=== PATIENT | female | born 1965 | race Hispanic/Latino ===

== ENCOUNTER 2017-08-31 13:27 | Emergency (ER) | payer OTHER, SELFPAY ==
--- NOTE | 2017-08-31 14:43 | ER ---
Nurse's Notes [facility] Name: Estefanía Pimentel Age: 52 yrs Sex: Female : 1965 Arrival Date: 08/31/2017 Time: 13:33 Bed 8 Private MD: Diagnosis: Essential (primary) hypertension Presentation: 08/31 13:50 Presenting complaint: Patient states: i was at work today, i felt little bit weird, hj felt my vision is blurry, BP- 160/75; HR- 88; my back is hurting now; denies fever and chills;. Transition of care: patient was not received from another setting of care. Onset of symptoms was August 31, 2017. Care prior to arrival: None. 13:50 Method Of Arrival: Ambulatory 13:50 Acuity: DANIEL 3 hj Triage Assessment: 13:53 General: Appears in no apparent distress. uncomfortable, Behavior is calm, cooperative, hj appropriate for age. Pain: Complains of pain in back. Musculoskeletal: Circulation, motion, and sensation intact. 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 Assessment: 14:00 General: Appears in no apparent distress. comfortable, well groomed, Behavior is calm, ae1 cooperative. Pain: Denies pain. Neuro: Level of Consciousness is awake, alert, obeys commands, Oriented to person, place, time, situation. Neuro: Reports blurred vision dizziness, Patient states " I told them I was fine but they made me come here". Cardiovascular: Heart tones S1 S2 present Patient's skin is warm and dry. Respiratory: Airway is patent Respiratory effort is even, unlabored, Respiratory pattern is regular, symmetrical, Breath sounds are clear bilaterally. GI: No signs and/or symptoms were reported involving the gastrointestinal system. : No signs and/or symptoms were reported regarding the genitourinary system. EENT: No signs and/or symptoms were reported regarding the EENT system. Derm: Skin is normal. Musculoskeletal: No signs and/or symptoms reported regarding the musculoskeletal system. Vital Signs: 13:54 BP 154 / 95; Pulse 78; Resp 18; Temp 97.8(TE); Pulse Ox 100% on R/A; Weight 71.67 kg; hj Height 5 ft. 6 in. (167.64 cm); 13:54 Body Mass Index 25.50 (71.67 kg, 167.64 cm) ED Course: 13:33 Patient arrived in ED. mr 13:52 Triage completed. hj 13:55 Arm band placed on right wrist. hj 14:00 Bed in low position. Call light in reach. Side rails up X 1. Pulse ox on. NIBP on. ae1 14:01 Ananda Solorio, RN is Primary Nurse. ae1 14:30 Marianela Lopez FNP is PHCP. kachito 14:30 Collin Norton MD is Attending Physician. kav Administered Medications: No medications were administered Outcome: 15:20 Patient left the ED. ae1 Signatures: Marianela Lopez FNP FNP kav Rivera, Maria Royal Lara RN RN Ananda Solorio, RN RN ae1 Corrections: (The following items were deleted from the chart) 13:54 13:50 Presenting complaint: Patient states: i was at work today, i felt little bit mina smith, BP- 160/75; HR- 88; my back is hurting now; denies fever and chills; hj
--- NOTE | 2017-08-31 14:44 | EDPHYS ---
Physician Documentation [facility] Name: Estefanía Pimentel Age: 52 yrs Sex: Female : 1965 Arrival Date: 08/31/2017 Time: 13:33 Bed 8 Private MD: ED Physician Collin Norton HPI: 08/31 14:30 This 52 yrs old Female presents to ER via Ambulatory with complaints of kav Blurred Vision, Dizziness, Back Pain. 14:35 Onset: The symptoms/episode began/occurred acutely. Duration: This was a single kav incident. Context: occurred at work, Possible contributing factors include: "...did not take her blood pressure medication today because she has not picked it up from the pharmacy". The symptoms are alleviated by nothing. The symptoms are aggravated by nothing. Associated signs and symptoms: Pertinent positives: back pain, blurred vision, Pertinent negatives: abdominal pain, agitation, ataxia, combativeness, confusion, diaphoresis, diarrhea, dizziness, headache, lightheadedness, nausea, numbness, palpitations, seizure, shortness of breath, tingling, vertigo, vomiting, weakness. Severity of symptoms: At their worst the symptoms were mild just prior to arrival, in the emergency department the symptoms have improved moderately. Patient's baseline: Neuro: alert and fully oriented, Motor: no deficits, Ambulation: walks without assistance, Speech: normal. The patient has not experienced similar symptoms in the past. The patient has been recently seen by a physician: the patient's primary care provider, change blood pressure medication . patient presents with c/o dizziness, blurred vision, back pain. she reports that she was "...switched to a new blood pressure medication on 08/30/17 and has not picked up the medication yet so, today she went without her blood pressure medication". she reports that "...she could tell that her blood pressure was elevated so, she came to the ED to get it checked out". 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 ROS: 14:40 Constitutional: Negative for fever, chills, and weight loss, Eyes: Negative for injury, kav pain, redness, and discharge, ENT: Negative for injury, pain, and discharge, Neck: Negative for injury, pain, and swelling, Cardiovascular: Negative for chest pain, palpitations, and edema, Respiratory: Negative for shortness of breath, cough, wheezing, and pleuritic chest pain, Abdomen/GI: Negative for abdominal pain, nausea, vomiting, diarrhea, and constipation, Back: Negative for injury and pain, : Negative for injury, bleeding, discharge, and swelling, MS/Extremity: Negative for injury and deformity, Skin: Negative for injury, rash, and discoloration, Psych: Negative for depression, anxiety, suicide ideation, homicidal ideation, and hallucinations, Allergy/Immunology: Negative for hives, rash, and allergies, Endocrine: Negative for neck swelling, polydipsia, polyuria, polyphagia, and marked weight changes, Hematologic/Lymphatic: Negative for swollen nodes, abnormal bleeding, and unusual bruising. 14:40 Neuro: Positive for dizziness, visual changes, Negative for altered mental status, gait disturbance, headache, loss of consciousness, seizure activity, speech changes, syncope, near syncope, weakness. Exam: 14:40 Constitutional: This is a well developed, well nourished patient who is awake, alert, kav and in no acute distress. Head/Face: Normocephalic, atraumatic. Eyes: Pupils equal round and reactive to light, extra-ocular motions intact. Lids and lashes normal. Conjunctiva and sclera are non-icteric and not injected. Cornea within normal limits. Periorbital areas with no swelling, redness, or edema. ENT: Nares patent. No nasal discharge, no septal abnormalities noted. Tympanic membranes are normal and external auditory canals are clear. Oropharynx with no redness, swelling, or masses, exudates, or evidence of obstruction, uvula midline. Mucous membranes moist. Neck: Trachea midline, no thyromegaly or masses palpated, and no cervical lymphadenopathy. Supple, full range of motion without nuchal rigidity, or vertebral point tenderness. No Meningismus. Chest/axilla: Normal chest wall appearance and motion. Nontender with no deformity. No lesions are appreciated. Respiratory: Lungs have equal breath sounds bilaterally, clear to auscultation and percussion. No rales, rhonchi or wheezes noted. No increased work of breathing, no retractions or nasal flaring. Abdomen/GI: Soft, non-tender, with normal bowel sounds. No distension or tympany. No guarding or rebound. No evidence of tenderness throughout. Back: No spinal tenderness. No costovertebral tenderness. Full range of motion. Skin: Warm, dry with normal turgor. Normal color with no rashes, no lesions, and no evidence of cellulitis. MS/ Extremity: Pulses equal, no cyanosis. Neurovascular intact. Full, normal range of motion. Neuro: Awake and alert, GCS 15, oriented to person, place, time, and situation. Cranial nerves II-XII grossly intact. Motor strength 5/5 in all extremities. Sensory grossly intact. Cerebellar exam normal. Normal gait. Psych: Awake, alert, with orientation to person, place and time. Behavior, mood, and affect are within normal limits. 14:40 Cardiovascular: hypertension 183/103 in ED setting. 14:40 Neuro: Exam negative for acute changes. kav Vital Signs: 13:54 BP 154 / 95; Pulse 78; Resp 18; Temp 97.8(TE); Pulse Ox 100% on R/A; Weight 71.67 kg; hj Height 5 ft. 6 in. (167.64 cm); 13:54 Body Mass Index 25.50 (71.67 kg, 167.64 cm) hj MDM: 14:30 Patient medically screened. kav 14:40 Data reviewed: vital signs, nurses notes, EKG. kav Administered Medications: No medications were administered Disposition: 09/01 14:46 Co-signature as Attending Physician, Collin Norton MD I agree with the assessment and [facility] plan of care. Disposition: 08/31/17 14:43 Patient has left against medical advice. Impression: Essential (primary) hypertension. - Patients states they are going to Home. - Condition is Stable. - Discharge Instructions: Hypertension, [id number], How to Take Your Blood Pressure, [id number], DASH Eating Plan, Managing Your High Blood Pressure. Follow up: Private Physician; When: 1 - 2 days; Reason: Recheck today's complaints, Continuance of care, Re-evaluation by your physician. - Problem is new. - Symptoms have improved. Signatures: Collin Norton MD MD cha Vern, Katherine, LOCOMOTIVE SUPERVISOR LOCOMOTIVE SUPERVISOR Royal Montes, RN RN hj Ananda Solorio RN RN ae1
== END 2017-08-31 15:20 | disposition left against medical advice (07) ==
LOC: ER 13:27
DX: I10 Essential (primary) hypertension
CPT/HCPCS: 99282

== ENCOUNTER 2017-11-04 10:33 | Emergency (ER) | payer OTHER ==
--- NOTE | 2017-11-04 11:31 | ER ---
Nurse's Notes [facility] Name: Estefanía Pimentel Age: 52 yrs Sex: Female : 1965 Arrival Date: 11/04/2017 Time: 10:35 Bed 11 Private MD: out of town, doctor Diagnosis: Other sprain of right middle finger Presentation: 11/04 11:12 Presenting complaint: Patient states: Patient states she was removing her glove from ae1 her left hand and felt a cramp in her palm and left middle digit the previous day. She reports pain and swelling to her left middle digit. Transition of care: patient was not received from another setting of care. Onset of symptoms was November 03, 2017 at 16:00. 11:12 Method Of Arrival: Ambulatory ae1 11:12 Acuity: DANIEL 5 ae1 11:15 Risk Assessment: Do you want to hurt yourself or someone else? Patient reports no iw desire to harm self or others. Initial Sepsis Screen: Does the patient meet any 2 criteria? No. Patient's initial sepsis screen is negative. Does the patient have a suspected source of infection? No. Patient's initial sepsis screen is negative. Care prior to arrival: None. Triage Assessment: 11:17 General: Appears in no apparent distress. comfortable, Behavior is calm, cooperative. ae1 Pain: Complains of pain in palmar aspect of distal phalanx of left middle finger, palmar aspect of middle phalanx of left middle finger, palmar aspect of proximal phalanx of left middle finger and palm of left hand. Neuro: Level of Consciousness is awake, alert, obeys commands, Oriented to person, place, time, situation. Respiratory: Airway is patent. Musculoskeletal: Swelling mild swelling to left middle digit. 11:30 Injury Description:. 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 - Social history:: Smoking status: Patient/guardian denies using tobacco. - Ebola Screening: : Patient negative for fever greater than or equal to 101.5 degrees Fahrenheit, and additional compatible Ebola Virus Disease symptoms Patient denies exposure to infectious person Patient denies travel to an Ebola-affected area in the 21 days before illness onset No symptoms or risks identified at this time. Screenin:30 Abuse screen: Denies threats or abuse. Denies injuries from another. Nutritional iw screening: No deficits noted. Tuberculosis screening: No symptoms or risk factors identified. Fall Risk None identified. Assessment: 11:30 General: Appears in no apparent distress. Behavior is calm, cooperative. Pain: iw Complains of pain in palm of left hand and palmar aspect of proximal phalanx of left middle finger. Neuro: Level of Consciousness is awake, alert, obeys commands, Oriented to person, place, time, Moves all extremities. Full function. Cardiovascular: Patient's skin is warm and dry. Respiratory: Respiratory effort is even, unlabored, Respiratory pattern is regular. Derm: Skin is pink, warm \T\ dry. normal. Musculoskeletal: Range of motion: intact in all extremities. Vital Signs: 11:15 BP 147 / 96; Pulse 67; Resp 18; Temp 98(O); Pulse Ox 100% on R/A; Weight 71.21 kg (R); ae1 ED Course: 10:35 Patient arrived in ED. mr 10:36 out of town, doctor is Private Physician. mr 10:46 Sun Marsh FNP-C is [facility]. snw 10:46 Jay Jacobsen MD is Attending Physician. snw 11:15 Triage completed. ae1 11:17 Arm band placed on right wrist. ae1 11:20 Siomara Naylor, EVAN is Primary Nurse. iw 11:30 Patient has correct armband on for positive identification. iw 11:40 No provider procedures requiring assistance completed. Patient did not have IV access iw during this emergency room visit. Administered Medications: No medications were administered Outcome: 11:31 Discharge ordered by MD. snw 11:42 Discharged to home ambulatory. iw 11:42 Condition: good 11:42 Discharge instructions given to patient, Instructed on discharge instructions, follow up and referral plans. Demonstrated understanding of instructions, follow-up care. 11:43 Patient left the ED. iw Signatures: Sun Marsh FNP-C SALES REPRESENTATIVES-Estefanía Sam mr Siomara Naylor, EVAN RN iw Osmin, Ananda, RN RN ae1
--- NOTE | 2017-11-04 11:31 | EDPHYS ---
Physician Documentation [facility] Name: Estefanía Pimentel Age: 52 yrs Sex: Female : 1965 Arrival Date: 11/04/2017 Time: 10:35 Bed 11 Private MD: out of town, doctor ED Physician Jay Jacobsen HPI: 11/04 11:36 This 52 yrs old Female presents to ER via Ambulatory with complaints of Hand snw Injury. 11:36 The patient or guardian reports pain. The complaints affect the right hand diffusely. snw Context: The problem was sustained at work, resulted from taking glove off. Onset: The symptoms/episode began/occurred yesterday. Associated signs and symptoms: The patient has no apparent associated signs or symptoms. Severity of symptoms: At their worst the symptoms were mild. The patient has not experienced similar symptoms in the past. It is unknown whether or not the patient has recently seen a physician. 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 - Social history:: Smoking status: Patient/guardian denies using tobacco. - Ebola Screening: : Patient negative for fever greater than or equal to 101.5 degrees Fahrenheit, and additional compatible Ebola Virus Disease symptoms Patient denies exposure to infectious person Patient denies travel to an Ebola-affected area in the 21 days before illness onset No symptoms or risks identified at this time. ROS: 11:35 Constitutional: Negative for fever, chills, and weight loss, Eyes: Negative for injury, snw pain, redness, and discharge, ENT: Negative for injury, pain, and discharge, Neck: Negative for injury, pain, and swelling, Cardiovascular: Negative for chest pain, palpitations, and edema, Respiratory: Negative for shortness of breath, cough, wheezing, and pleuritic chest pain, Abdomen/GI: Negative for abdominal pain, nausea, vomiting, diarrhea, and constipation, Back: Negative for injury and pain, : Negative for injury, bleeding, discharge, and swelling, Skin: Negative for injury, rash, and discoloration, Neuro: Negative for headache, weakness, numbness, tingling, and seizure. 11:35 MS/extremity: Positive for injury or acute deformity, tenderness, of the palmar aspect of proximal phalanx of right middle finger and palm of right hand, Negative for decreased range of motion, laceration, paresthesias. Exam: 11:32 Constitutional: This is a well developed, well nourished patient who is awake, alert, snw and in no acute distress. Head/Face: Normocephalic, atraumatic. Eyes: Pupils equal round and reactive to light, extra-ocular motions intact. Lids and lashes normal. Conjunctiva and sclera are non-icteric and not injected. Cornea within normal limits. Periorbital areas with no swelling, redness, or edema. ENT: Nares patent. No nasal discharge, no septal abnormalities noted. Tympanic membranes are normal and external auditory canals are clear. Oropharynx with no redness, swelling, or masses, exudates, or evidence of obstruction, uvula midline. Mucous membranes moist. Neck: Trachea midline, no thyromegaly or masses palpated, and no cervical lymphadenopathy. Supple, full range of motion without nuchal rigidity, or vertebral point tenderness. No Meningismus. Chest/axilla: Normal chest wall appearance and motion. Nontender with no deformity. No lesions are appreciated. Cardiovascular: Regular rate and rhythm with a normal S1 and S2. No gallops, murmurs, or rubs. Normal PMI, no JVD. No pulse deficits. Respiratory: Lungs have equal breath sounds bilaterally, clear to auscultation and percussion. No rales, rhonchi or wheezes noted. No increased work of breathing, no retractions or nasal flaring. Abdomen/GI: Soft, non-tender, with normal bowel sounds. No distension or tympany. No guarding or rebound. No evidence of tenderness throughout. Back: No spinal tenderness. No costovertebral tenderness. Full range of motion. Skin: Warm, dry with normal turgor. Normal color with no rashes, no lesions, and no evidence of cellulitis. Neuro: Awake and alert, GCS 15, oriented to person, place, time, and situation. Cranial nerves II-XII grossly intact. Motor strength 5/5 in all extremities. Sensory grossly intact. Cerebellar exam normal. Normal gait. Psych: Awake, alert, with orientation to person, place and time. Behavior, mood, and affect are within normal limits. 11:32 Musculoskeletal/extremity: ROM: full active range of motion, Circulation is intact in all extremities. Sensation intact. Compartment Syndrome exam of affected extremity: is normal. tender to insertion site of flexor tendon. Vital Signs: 11:15 BP 147 / 96; Pulse 67; Resp 18; Temp 98(O); Pulse Ox 100% on R/A; Weight 71.21 kg (R); ae1 MDM: 11:25 Patient medically screened. snw 11:34 Data reviewed: vital signs, nurses notes. Data interpreted: Pulse oximetry: on room air snw is 100 %. Interpretation: normal. Counseling: I had a detailed discussion with the patient and/or guardian regarding: the historical points, exam findings, and any diagnostic results supporting the discharge/admit diagnosis, the presence of at least one elevated blood pressure reading (>120/80) during this emergency department visit, the need for outpatient follow up, to return to the emergency department if symptoms worsen or persist or if there are any questions or concerns that arise at home. Special discussion: Based on the history and exam findings, there is no indication for further emergent testing or inpatient evaluation. I discussed with the patient/guardian the need to see the primary care provider for further evaluation of the symptoms. Administered Medications: No medications were administered Disposition: 16:15 Co-signature as Attending Physician, Jay Jacobsen MD I agree with the assessment and kdr plan of care. Disposition: 11/04/17 11:31 Discharged to Home. Impression: Other sprain of right middle finger. - Condition is Stable. - Discharge Instructions: Elastic Bandage and RICE, Finger Sprain. - Medication Reconciliation Form, Thank You Letter, Antibiotic Education, Prescription Opioid Use, Work release form form. - Follow up: Private Physician; When: 2 - 3 days; Reason: Recheck today's complaints, Continuance of care, Re-evaluation by your physician. Follow up: Emergency Department; When: As needed; Reason: Worsening of condition. - Problem is new. - Symptoms are unchanged. Signatures: Jay Jacobsen MD MD kdr Therrien, Shelly, CHALK EXTRUDING MACHINE OPERATOR-C CHALK EXTRUDING MACHINE OPERATOR-Csnw Siomara Naylor RN RN Ananda Holloway RN RN ae1 Corrections: (The following items were deleted from the chart) 11:43 11:31 11/04/2017 11:31 Discharged to Home. Impression: Other sprain of right middle iw finger. Condition is Stable. Forms are Medication Reconciliation Form, Thank You Letter, Antibiotic Education, Prescription Opioid Use. Follow up: Private Physician; When: 2 - 3 days; Reason: Recheck today's complaints, Continuance of care, Re-evaluation by your physician. Follow up: Emergency Department; When: As needed; Reason: Worsening of condition. Problem is new. Symptoms are unchanged. snw
== END 2017-11-04 11:43 | disposition home or self-care (01) ==
LOC: ER 10:33
DX: S63.692A Other sprain of right middle finger, initial encounter (principal); X58.XXXA Exposure to other specified factors, initial encounter; Y93.89 Activity, other specified; Y92.89 Other specified places as the place of occurrence of the external cause; Y99.8 Other external cause status; I10 Essential (primary) hypertension
CPT/HCPCS: 99281